=== PATIENT | female | born 1970 | race Caucasian/White ===

== ENCOUNTER 2016-04-24 13:58 | Outpatient (RCR) | payer OTHER ==
--- OUTSIDE RECORDS SUMMARY | 2016-03-13 16:16 | XMS REPORT | Continuity of Care Document ---
Author Author [facility] Organization [facility] Address Unknown Phone Unavailable Care Team Providers Care Licensed Professional Counselor Name Role Phone EDD BERNAL MD PCP Insurance Providers Payer Name Policy Number Subscriber Name Relationship [place] Claims [facility] [id number] Nikhil Ansari 01 Advance Directives Directive Response Recorded Date/Time Advance Directives No 08/10/14 1:04am Organ Donor Yes 08/10/14 1:04am Resuscitation Status Full Code 08/10/14 1:04am Problems Medical Problems Problem Onset Date Status Headache Unknown Active Medications Medication Dose Route Sig Days/Qty Instructions Order Date Discontinued Date Status Lisdexamfetamine Dimesylate 07/08/09 12/06/10 Discontinued Topiramate 07/08/09 12/06/10 Discontinued Fluvoxamine Maleate 07/08/09 12/06/10 Discontinued Ziprasidone 07/08/09 07/08/09 Discontinued Alprazolam 07/08/09 07/08/09 Discontinued Amoxicillin 1 Each PO FOUR TIMES DAILY 40 Qty FOR INFECTION 12/06/10 Discontinued Acetaminophen/Butalbital/Caffeine 1 - 2 Each PO Q4HR PRN 10 Qty 08/10/14 Discontinued Fluticasone Propionate 2 Sprays NSEACH DAILY 1 Qty FOR SINUSES 12/06/10 Active Loratadine/Pseudoephedrine Sulfate 1 Each PO TWICE A DAY 30 Qty Active Alprazolam 0.5 Mg PO TWICE A DAY 45 Qty 08/10/14 Active Metformin Hcl 100 Mg PO TWICE A DAY 60 Qty 08/10/14 Active Topiramate 100 Mg PO TWICE A DAY 60 Qty 08/10/14 Active Fluvoxamine Maleate 300 Mg PO DAILY 90 Qty 08/10/14 Active Lisdexamfetamine Dimesylate 1 Cap PO DAILY 30 Qty 08/10/14 Active Social History Social History Problem Response Recorded Date/Time Alcohol Use Denies Use 08/10/2014 1:04am Recreational Drug Use No 08/10/2014 1:04am Recent Foreign Travel No 08/10/2014 1:04am Recent Infectious Disease Exposure No 08/10/2014 1:04am Hospitalization with Isolation Denies 08/10/2014 1:04am Smoking Status Never a Smoker 08/10/2014 1:04am Do you dip or chew tobacco? No 08/10/2014 1:04am Query Response Start Date Stop Date Smoking Status Never a Smoker Hospital Discharge Instructions No hospital discharge instructions. Plan of Care No plan of care. Functional Status Query Response Date Recorded Patient Orientation Person Place Time Situation August 10, 2014 1:04am Comprehension Ability Understands Concepts August 10, 2014 1:04am Allergies, Adverse Reactions, Alerts Allergen Type Severity Reaction Status Last Updated Codeine Adverse Reaction Intermediate Active 12/06/10 hydrocodone ([id number]) Allergy Unknown Active 08/10/14 meperidine Allergy Mild Active 07/08/09 Immunizations No immunization records. Vital Signs Acute Vital Signs Vital Response Date/Time Temperature (Fahrenheit) 97.6 degrees F (97.6 - 99.5) Temperature (Calculated Celsius) 36.39719 degrees C (36.4 - 37.5) Temperature Source Temporal Pulse Rate (adult) 86 bpm (60 - 90) Respiratory Rate 18 bpm (12 - 24) O2 Sat by Pulse Oximetry 98 % (88 - 100) Blood Pressure 112/53 mm Hg Pain Pain Intensity 9 Height (Feet) 5 feet Height (Inches) 4 inches Height (Calculated Centimeters) 162.895894 cm Weight (Pounds) 158 pounds Weight (Calculated Kilograms) 71.618224 kilograms Calculated BMI 27.12 Results No known relevant diagnostic tests, laboratory data and/or discharge summary. Procedures No known history of procedures. Encounters Encounter Location Date/Time Departed Emergency Room [facility] 08/10/14 12:43am Recent Diagnosis
[~2016-04-24 13:58] MED LIST: ALPR1TAB21; ALPR1TAB7 PO; AMOX500C2 PO; BUTA1TAB46 PO; FLT05NA16 NSEACH; FLUV100T3 PO; FLUV150C; LISD50CA2 PO; LISD70CA3; LISD70CA3 PO; LORA1TAB16 PO; METF500T4 PO; MULT-1029 PO; TOPI100T2 PO; TOPI50TA2; ZINC50TA51 PO; ZIPR60CA6
[2016-05-09] MEDS ORDERED: TOPI100T PO (13:01)
[2016-05-09] MEDS ORDERED: MELA1TAB8 PO (13:02)
[2016-05-14] MEDS ORDERED: OXYC-202 PO ×2 (13:48→15:10)
[2016-05-14] MEDS ORDERED: IBUP-1773 PO ×2 (13:48→15:10)
== END 2016-06-11 | disposition home or self-care (01) ==
LOC: ONC 13:58
PROVIDERS: ATTEND Internal Medicine Hematology & Oncology
DX: D64.9 Anemia, unspecified (principal)
CPT/HCPCS: 99213; 99214

== ENCOUNTER → 2018-04-10 | Outpatient (CLI) | payer OTHER ==
[~2018-04-10] MED LIST changes: +IBUP-1773 PO; +MELA1TAB8 PO; +OXYC1TAB12 PO; +TOPI100T PO
--- NOTE | 2018-04-10 16:10 | Diagnostic Imaging Report ---
INDICATION: Injury to the right foot with pain and swelling. TIME OF EXAM: 01:54 p.m. FINDINGS: Three views of the right foot were obtained. The metatarsals appear intact. Phalanges appear intact. Mid foot and hindfoot are unremarkable. No fractures are seen. IMPRESSION: No acute bony abnormality is detected. Dictated by: Dictated on workstation # [id number]
== END ==
LOC: RAD 13:10
PROVIDERS: ATTEND Family Medicine
DX: S99.921A Unspecified injury of right foot, initial encounter (principal)
CPT/HCPCS: 73630

== ENCOUNTER 2018-11-14 11:46 | Emergency (ER) | payer BC, OTHER ==
[~2018-11-14] VITALS: Ht 162.6 cm; Wt 64.9 kg
--- OUTSIDE RECORDS SUMMARY | 2018-11-14 11:52 | XMS REPORT ---
Author Author J[facility] SAV[facility] Address [address] [place] [address] Care Team Providers Care Senior Software Engineering Manager Name Role Phone JAMES SAVAGE Unavailable PROBLEMS Unknown Problems ALLERGIES No Information ENCOUNTERS Encounter Location Date Diagnosis [facility] [address] [facility] [id number], [place] [address] Oct, Visit for TB skin test Z11.1 IMMUNIZATIONS No Known Immunizations SOCIAL HISTORY Never Assessed REASON FOR VISIT TB skin test PLAN OF CARE Activity Details Follow Up 48-72 hours. 48-72 hours Reason: VITAL SIGNS MEDICATIONS Unknown Medications RESULTS No Results PROCEDURES Procedure Date Ordered Result Body Site TB INTRADERMAL 2017-11-01 N/A TB INTRADERMAL TEST November 01, 2017 TB INTRADERMAL TEST November 01, 2017 INSTRUCTIONS MEDICATIONS ADMINISTERED No Known Medications
[2018-11-14 12:02] VITALS: BP 120/60
[2018-11-14] MEDS ORDERED: NS IV 1000 ML 1,000 ML IV SCH ×2 (12:14→13:16)
[2018-11-14] MEDS ORDERED: KETOROLAC 30 MG/ML VIAL IVP STA (13:16)
--- NOTE | 2018-11-14 13:19 | NUR ---
UP TO BATHROOM
[2018-11-14] MEDS ORDERED: PROCHLORPERAZINE 10 MG/2ML INJ (COMPAZINE) IV ONE (13:30)
[2018-11-14] MEDS ORDERED: diphenhydrAMINE 50 MG/ML INJ (BENADRYL) IVP ONE (13:30)
[2018-11-14 13:34] LABS: CLARITY,URINE SLIGHTLY CLOUDY; COLOR,URINE AMBER; GLUCOSE, URINE (UA) NEGATIVE (NEGATIVE); KETONES,URINE 4+ (NEGATIVE); LEUKOCYTE ESTERASE ,URINE 1+ (NEGATIVE); NITRITE,URINE NEGATIVE (NEGATIVE); PH,URINE 6 (5-9); PROTEIN,URINE 2+ (NEGATIVE); UROBILINOGEN,URINE 1 MG/DL (NORMAL)
[2018-11-14 13:40] LABS: BACTERIA,URINE NEGATIVE /HPF; BILIRUBIN,URINE 1+ (NEGATIVE)
[2018-11-14 13:43] LABS: BASOPHILS % (AUTO) 0 % (0-10); EOSINOPHILS # (AUTO) 0.1 10^3/uL (0.0-0.3); EOSINOPHILS % (AUTO) 1 % (0-10); HEMATOCRIT 45 % (35-52); HEMOGLOBIN 15.3 G/DL (11.5-16.0); LYMPHOCYTES # (AUTO) 1.1 X 10^3 (1.0-4.0); LYMPHOCYTES % (AUTO) 13 % (12-44); MEAN CORPUSCULAR HEMOGLOBIN 30 PG (25-34); MEAN CORPUSCULAR HGB CONC 34 G/DL (32-36); MEAN CORPUSCULAR VOLUME 88 FL (80-99); MEAN PLATELET VOLUME 11.3 FL (7.4-10.4); MONOCYTES # (AUTO) 0.5 X 10^3 (0.0-1.0); MONOCYTES % (AUTO) 6 % (0-12); NEUTROPHILS # (AUTO) 6.9 X 10^3 (1.8-7.8); NEUTROPHILS % (AUTO) 80 % (42-75); PLATELET COUNT 286 10^3/uL (130-400); RED CELL DISTRIBUTION WIDTH 13.8 % (10.0-14.5); WHITE BLOOD COUNT 8.7 10^3/uL (4.3-11.0)
[2018-11-14 13:56] LABS: ALANINE AMINOTRANSFERASE 14 U/L (0-55); ALBUMIN 4.7 GM/DL (3.2-4.5); ALKALINE PHOSPHATASE 98 U/L (40-136); BILIRUBIN,TOTAL 0.5 MG/DL (0.1-1.0); BUN/CREATININE RATIO 17; CALCIUM 9.9 MG/DL (8.5-10.1); CARBON DIOXIDE 22 MMOL/L (21-32); CHLORIDE 105 MMOL/L (98-107); CREATININE SERUM 0.98 MG/DL (0.60-1.30); GFR ESTIMATED > 60; GLUCOSE 99 MG/DL (70-105); POTASSIUM 3.4 MMOL/L (3.6-5.0); SODIUM 139 MMOL/L (135-145); TOTAL PROTEIN 8.1 GM/DL (6.4-8.2)
[2018-11-14] MEDS ORDERED: PROC-1 PO (14:18)
--- NOTE | 2018-11-14 14:18 | ED Headache ---
General Chief Complaint: Abdominal/GI Problems Stated Complaint: VOMITTING, HEADACHE Nursing Triage Note: Pt c/o vomiting and DAVIES that began Saturday. Pt reports taking a new medication, Trintellix, on Saturday and then symptoms began on Saturday. Pt reports taking zofran at home with no effect. Pt reports seeing Dr. Fitzpatrick[facility] today. Pt c/o feeling dehydrated. Nursing Sepsis Screen: No Definite Risk History of Present Illness Date Seen by Provider: Nov 14, 2018 Time Seen by Provider: 12:15 Initial Comments 48-year-old female presents for 3 day history of vomiting and he adache. She was started on a new medicine Saturday and then her symptoms began the next day. She's been using Zofran with no improvement in her symptoms she has not been taking her Topamax or her other migraine medication because of the nausea. Timing/Duration: waxing and waning Severity/Quality: moderate Location: frontal, occipital Prior Headaches/Recent Trauma: frequent headaches Associated Symptoms: nausea/vomiting; No vision changes Allergies and Home Medications Allergies Coded Allergies: meperidine (Unverified Allergy, Mild, 05/09/16) hydrocodone (Verified Allergy, Unknown, 05/09/16) codeine (Unverified Adverse Reaction, Intermediate, 05/09/16) vortioxetine (Verified Adverse Reaction, Intermediate, severe vomiting, headache, 11/14/18) Home Medications Alprazolam 1 Mg Tablet, 0.5 MG PO PRN, (Reported) Fluvoxamine Maleate 100 Mg Tablet, 300 MG PO DAILY, (Reported) Ibuprofen 600 Mg Tablet, 600 MG PO Q6H Prescribed by: BOB ASHER on 05/14/16 1348 Ibuprofen 600 Mg Tablet, 600 MG PO Q6H PRN for PAIN Prescribed by: BOB ASHER on 05/14/16 1510 Lisdexamfetamine Dimesylate 70 Mg Capsule, 70 MG PO DAILY, (Reported) Melatonin 1 Mg Tablet, 1 MG PO PRN, (Reported) Metformin Hcl 500 Mg Tablet, 100 MG PO BID, (Reported) Multivit-Min/FA/Lycopene/Lut 1 Each Tablet, 1 EACH PO DAILY, (Reported) Oxycodone HCl/Acetaminophen 1 Each Tablet, 1-2 TAB PO Q4H PRN for PAIN Prescribed by: BOB ASHER on 05/14/16 1348 Oxycodone HCl/Acetaminophen 1 Each Tablet, 1 TAB PO Q4H PRN for PAIN Prescribed by: BOB ASHER on 05/14/16 1510 Prochlorperazine Maleate 10 Mg Tablet, 10 MG PO Q6H PRN for NAUSEA/VOMITING-1ST LINE Prescribed by: EVANS NAVARRO on 11/14/18 1418 Topiramate 100 Mg Tablet, 100 MG PO BID, (Reported) Topiramate 100 Mg Tablet, 100 MG PO PRN, (Reported) Zinc Amino Acid Chelate 50 Mg Tablet, 50 MG PO DAILY, (Reported) Patient Home Medication List Home Medication List Reviewed: Yes Review of Systems Review of Systems Constitutional: no symptoms reported, see HPI Psychiatric/Neurological: See HPI, Headache All Other Systems Reviewed Negative Unless Noted: Yes Past Bdaxuqf-Ztptqg-Fogstz Hx Past Med/Social Hx: Reviewed Nursing Past Med/Soc Hx Patient Social History Alcohol Use: Denies Use Recreational Drug Use: No Smoking Status: Never a Smoker 2nd Hand Smoke Exposure: No Recent Foreign Travel: No Contact w/Someone Who Travel: No Recent Infectious Disease Expo: No Recent Hopitalizations: No Seasonal Allergies Seasonal Allergies: Yes Past Medical History Surgeries: Yes (D&C, SHEREEN TOTAL KNEE RECONSTRUCTION AT (NO KNEE CAPS)) Appendectomy, Section, Gallbladder, Orthopedic Respiratory: No Cardiac: No Neurological: Yes Headaches /Migraines Last Menstrual Period: Nov 09, 2018 Reproductive Disorders: Yes (MENORRHAGIA) Female Reproductive Disorders: Menstrual Problems Sexually Transmitted Disease: No HIV/AIDS: No Gastrointestinal: No Musculoskeletal: No Endocrine: No Loss of Vision: Bilateral Hearing Impairment: Denies Cancer: No Psychosocial: Yes (OCD) Anxiety, ODD Integumentary: No Blood Disorders: Yes (ANEMIA) Adverse Reaction/Blood Tranf: No (HAS HAD BLOOD WITH NO REACTION) Physical Exam Vital Signs Vital Signs - First Documented 11/14/18 12:02 Temp 96.8 Pulse 76 Resp 20 B/P (MAP) 120/60 (80) Pulse Ox 99 O2 Delivery Room Air Capillary Refill : Less Than 3 Seconds Height, Weight, BMI Height: 5'4.00" Weight: 143lbs. 0.0oz. 64.268099iz; 23.3 BMI Method:Stated General Appearance: WD/WN, no apparent distress HEENT: PERRL/EOMI, normal ENT inspection, TMs normal, pharynx normal Neck: non-tender, full range of motion, supple, normal inspection, other (no nuchal rigidity) Cardiovascular: normal peripheral pulses, regular rate, rhythm, no edema, no mu rmur Respiratory: chest non-tender, lungs clear, normal breath sounds Gastrointestinal: normal bowel sounds, non tender, soft Extremities: normal range of motion, non-tender, normal inspection, no pedal edema, normal capillary refill Psychiatric: alert, oriented x 3, depressed affect Crainal Nerves: normal hearing, normal speech, PERRL Coordination/Gait: normal finger to nose, normal gait Motor/Sensory: no motor deficit, no sensory deficit Skin: normal color, warm/dry Progress/Results/Core Measures Results/Orders Lab Results Laboratory Tests Test 11/14/18 12:22 11/14/18 13:27 Range/Units White Blood Count 8.7 4.3-11.0 10^3/uL Red Blood Count 5.13 4.35-5.85 10^6/uL Hemoglobin 15.3 11.5-16.0 G/DL Hematocrit 45 35-52 % Mean Corpuscular Volume 88 80-99 FL Mean Corpuscular Hemoglobin 30 25-34 PG Mean Corpuscular Hemoglobin Concent 34 32-36 G/DL Red Cell Distribution Width 13.8 10.0-14.5 % Platelet Count 286 130-400 10^3/uL Mean Platelet Volume 11.3 H 7.4-10.4 FL Neutrophils (%) (Auto) 80 H 42-75 % Lymphocytes (%) (Auto) 13 12-44 % Monocytes (%) (Auto) 6 0-12 % Eosinophils (%) (Auto) 1 0-10 % Basophils (%) (Auto) 0 0-10 % Neutrophils # (Auto) 6.9 1.8-7.8 X 10^3 Lymphocytes # (Auto) 1.1 1.0-4.0 X 10^3 Monocytes # (Auto) 0.5 0.0-1.0 X 10^3 Eosinophils # (Auto) 0.1 0.0-0.3 10^3/uL Basophils # (Auto) 0.0 0.0-0.1 10^3/uL Sodium Level 139 135-145 MMOL/L Potassium Level 3.4 L 3.6-5.0 MMOL/L Chloride Level 105 98-107 MMOL/L Carbon Dioxide Level 22 21-32 MMOL/L Anion Gap 12 5-14 MMOL/L Blood Urea Nitrogen 17 7-18 MG/DL Creatinine 0.98 0.60-1.30 MG/DL Estimat Glomerular Filtration Rate > 60 BUN/Creatinine Ratio 17 Glucose Level 99 70-105 MG/DL Calcium Level 9.9 8.5-10.1 MG/DL Corrected Calcium 8.5-10.1 MG/DL Total Bilirubin 0.5 0.1-1.0 MG/DL Aspartate Amino Transf (AST/SGOT) 17 5-34 U/L Alanine Aminotransferase (ALT/SGPT) 14 0-55 U/L Alkaline Phosphatase 98 40-136 U/L Total Protein 8.1 6.4-8.2 GM/DL Albumin 4.7 H 3.2-4.5 GM/DL Urine Color ELIER H Urine Clarity SLIGHTLY CLOUDY Urine pH 6 5-9 Urine Specific Prosper 1.025 H 1.016-1.022 Urine Protein 2+ H NEGATIVE Urine Glucose (UA) NEGATIVE NEGATIVE Urine Ketones 4+ H NEGATIVE Urine Nitrite NEGATIVE NEGATIVE Urine Bilirubin 1+ H NEGATIVE Urine Urobilinogen 1 NORMAL MG/DL Urine Leukocyte Esterase 1+ H NEGATIVE Urine RBC (Auto) 4+ H NEGATIVE Urine RBC 2-5 H /HPF Urine WBC 2-5 /HPF Urine Squamous Epithelial Cells 2-5 /HPF Urine Crystals NONE /LPF Urine Bacteria NEGATIVE /HPF Urine Casts NONE /LPF Urine Mucus LARGE H /LPF Urine Culture Indicated NO My Orders Orders - EVANS NAVARRO Ua Culture If Indicated (11/14/18 12:14) Ed Iv/Invasive Line Start (11/14/18 12:14) Ns Iv 1000 Ml (Sodium Chloride 0.9%) (11/14/18 12:14) Ed Iv/Invasive Line Start (11/14/18 13:16) Ns Iv 1000 Ml (Sodium Chloride 0.9%) (11/14/18 13:16) Ketorolac Injection (Toradol Injection) (11/14/18 13:16) Diphenhydramine Injection (Benadryl Inje (11/14/18 13:30) Prochlorperazine Injection (Compazine In (11/14/18 13:30) Cbc With Automated Diff (11/14/18 13:37) Comprehensive Metabolic Panel (11/14/18 13:37) Medications Given in ED Current Medications Medications Dose Ordered Sig/Brigida Route Start Time Stop Time Status Last Admin Dose Admin Diphenhydramine HCl 25 mg ONCE ONCE IVP 11/14/18 13:30 11/14/18 13:31 DC 11/14/18 13:30 25 MG Prochlorperazine Edisylate 10 mg ONCE ONCE IV 11/14/18 13:30 11/14/18 13:31 DC 11/14/18 13:30 10 MG Vital Signs/I&O 11/14/18 12:02 Temp 96.8 Pulse 76 Resp 20 B/P (MAP) 120/60 (80) Pulse Ox 99 O2 Delivery Room Air Blood Pressure Mean: 80 Progress Progress Note : Time: 12:15 Progress Note Patient seen and evaluated, will give normal saline 1 L per IV, Compazine 10 mg per IV, Benadryl 25 mg per IV and Toradol 30 mg per IV. 1315 patient reports some improvement in her symptoms, will give another liter of normal saline. Labs essentially normal. 1415 patient reports complete resolution of her headache, no further nausea or vomiting. She was taking ice chips with no complaints. Discharge instructions and return precautions reviewed with her. Departure Impression Primary Impression: Migraine Qualified Codes: G43.019 - Migraine without aura, intractable, without status migrainosus Additional Impression: Nausea Disposition: 01 HOME, SELF-CARE Condition: Improved Departure-Patient Inst. Decision time for Depature: 14:15 Referrals: EDD FITZPATRICK MD (PCP/Family) Primary Care Physician Patient Instructions: Migraine Headache (DC) Add. Discharge Instructions: Use medications as directed. Follow-up with your primary care provider for migraine treatment. Clear liquid diet for the next 4 hours then advance to bland diet as tolerated. Return to emergency department for new, urgent health care. All discharge instructions reviewed with patient and/or family. Voiced understanding. Scripts Prochlorperazine Maleate (Compazine) 10 Mg Tablet 10 MG PO Q6H PRN for NAUSEA/VOMITING-1ST LINE, #12 TAB 0 Refills Prov: EVANS NAVARRO 11/14/18 Copy Copies To 1: EDD FITZPATRICK MD, AMY ARNP Nov 14, 2018 14:18
== END 2018-11-14 14:54 | disposition home or self-care (01) ==
LOC: EDUNIT# 11:46 → ER 11:48
DX: G43.909 Migraine, unspecified, not intractable, without status migrainosus (principal); R11.0 Nausea; F41.9 Anxiety disorder, unspecified; F42.9 Obsessive-compulsive disorder, unspecified; F91.3 Oppositional defiant disorder; D64.9 Anemia, unspecified; Z88.5 Allergy status to narcotic agent; Z88.8 Allergy status to other drugs, medicaments and biological substances; Z79.84 Long term (current) use of oral hypoglycemic drugs; Z96.653 Presence of artificial knee joint, bilateral; Z98.890 Other specified postprocedural states; Z90.49 Acquired absence of other specified parts of digestive tract; Z87.448 Personal history of other diseases of urinary system
CPT/HCPCS: 36415; 80053; 81000; 85025

== ENCOUNTER → 2020-12-12 | Outpatient (CLI) | payer BC ==
[~2020-12-12] MED LIST changes: +MELA1TAB51 PO; -MELA1TAB8 PO; +PROC-1 PO
--- NOTE | 2020-12-13 14:03 | Diagnostic Imaging Report ---
Indication: 2-D and 3-D Digital screening with CAD. Compared: 04/2016 Findings: Scattered curvilinear densities in the breasts present. No mass or architectural distortion or spiculated lesion. No suspicious calcifications. Impression: Stable negative mammogram BI-RADS Category 1 ACR BI-RADS Category 1: Negative. Result letter will be mailed to the patient. Note: At least 10% of breast cancer is not imaged by mammography. Dictated by: Dictated on workstation # [id number]
== END ==
LOC: RAD 14:10
PROVIDERS: ATTEND Nurse Practitioner Family
DX: Z12.31 Encounter for screening mammogram for malignant neoplasm of breast (principal); Z12.4 Encounter for screening for malignant neoplasm of cervix; Z76.0 Encounter for issue of repeat prescription; F41.1 Generalized anxiety disorder; G43.109 Migraine with aura, not intractable, without status migrainosus; G47.419 Narcolepsy without cataplexy; F33.9 Major depressive disorder, recurrent, unspecified
CPT/HCPCS: 77063; 77067

== ENCOUNTER → 2020-12-12 | Outpatient (CLI) | payer BC ==
--- NOTE | 2020-12-12 15:34 | Diagnostic Imaging Report ---
PROCEDURE: CT abdomen and pelvis without contrast. TECHNIQUE: Multiple contiguous axial images were obtained through the abdomen and pelvis without the use of intravenous contrast. Auto Exposure Controls were utilized during the CT exam to meet ALARA standards for radiation dose reduction. INDICATION: Hematuria. COMPARISON: I have no previous. FINDINGS: The unopacified urinary bladder appeared unremarkable. No perivesical edema. The uterus is unremarkable. There is a left adnexal cyst presumed dominant ovarian follicle measuring about 2.5 cm. There is no small or large bowel obstruction. There is no appendicitis or diverticulitis. There are no opaque kidney stones. There are two fat-containing right renal masses the largest of which is at its mid to lower third measuring 1.8 cm. The smaller was about 1 cm in the upper pole. These are consistent with angiomyolipomas without evidence for the rupture. No soft tissue density, renal mass. No stone, hydronephrosis or evidence for hemorrhage. Gallbladder is surgically absent. No pathological distention of bile ducts. The spleen, adrenals and pancreas are unremarkable. The aorta is nonaneurysmal. IMPRESSION: 1. Benign fat-containing right renal masses consistent with angiomyolipomas. These showed no evidence for rupture or hemorrhage. 2. Unopacified urinary bladder appeared nonfocal. No hydronephrosis or opaque nephrolithiasis. 3. Probable dominant left ovarian follicle with no acute appearing abdominal or pelvic pathology. Dictated by: Dictated on workstation # [id number]
== END ==
LOC: RAD 14:15
PROVIDERS: ATTEND Urology
DX: D17.71 Benign lipomatous neoplasm of kidney (principal)
CPT/HCPCS: 74176